=== PATIENT | male | born 1985 | race Caucasian/White ===

== ENCOUNTER 2017-03-26 20:27 | Emergency (ER) | payer OTHER ==
[~2017-03-26] VITALS: Ht 182.9 cm; Wt 117.9 kg
[~2017-03-26 20:27] MED LIST: ALBU90OI INH; CLON.5 PO; ERGO50000 PO; GUAI120S1 PO; IBUP800 PO; KETO10 PO; MEDICAL MARIJUANA; NYATA15 GM TP; OMEP40CA12 PO; PROM25 PO; Pseudoephedrine30 MG PO; Zofran Odt4 MG SL; [UNRECOGNIZED DRUG - OTHER]
[2017-03-26 21:14] LABS: BASOPHILS ABSOLUTE AUTO 0.05 K/mm3 (0.00-0.23); BASOPHILS PERCENT AUTO 1 % (0-2); EOSINOPHILS ABSOLUTE AUTO 0.36 K/mm3 (0.00-0.68); EOSINOPHILS PERCENT AUTO 3 % (0-6); Hemoglobin 15.3 g/dL (13.5-17.5); IMMATURE GRAN ABSOLUTE AUTO 0.04 K/mm3 (0.00-0.10); IMMATURE GRAN PERCENT AUTO 0 % (0-1); LYMPHOCYTES ABSOLUTE AUTO 4.94 K/mm3 (0.84-5.20); LYMPHOCYTES PERCENT AUTO 45 % (21-46); MONOCYTES ABSOLUTE AUTO 0.91 K/mm3 (0.16-1.47); MONOCYTES PERCENT AUTO 8 % (4-13); Mean Corpuscular HGB 30.7 pg (26.0-34.0); Mean Corpuscular HGB Conc 34.8 g/dL (31.5-36.5); Mean Corpuscular Volume 88 fL (80-100); Mean Platelet Volume 9.7 fL (9.1-12.4); NEUTROPHILS ABSOLUTE AUTO 4.76 K/mm3 (1.96-9.15); NEUTROPHILS PERCENT AUTO 43 % (41-73); Platelet Count 270 K/mm3 (150-400); RDW Coefficient Variation 12.9 % (11.7-14.2); RDW Standard Deviation 41.5 fL (35.1-46.3); Red Blood Cell Count 4.99 M/mm3 (4.30-5.90); White Blood Cell Count 11.06 K/mm3 (4.00-11.30)
[2017-03-26 21:30] LABS: Alanine Aminotransfer (ALT/SGP 38 U/L (12-78); Albumin, Blood 4.2 g/dL (3.4-5.0); Albumin/Globulin Ratio 1.3 (0.8-1.8); Alk Phos 83 U/L (50-136); Anion Gap 10 mmol/L (6-16); Aspartate Aminotrans (AST/SGOT 19 U/L (12-37); Bilirubin, Total 0.3 mg/dL (0.1-1.0); Blood Urea Nitrogen 16 mg/dL (8-24); Bun/Creatinine Ratio 15.1 (12.0-20.0); CO2, Blood 21 mmol/L (21-32); Calcium, Blood 8.9 mg/dL (8.5-10.1); Chloride, Blood 109 mmol/L (98-108); Creatinine, Blood 1.06 mg/dL (0.60-1.20); Globulin, Blood 3.2 g/dL (2.2-4.0); Glomerular Filtration Rate >60 (60-); Glucose, Blood 86 mg/dL (70-99); Potassium, Blood 3.8 mmol/L (3.5-5.5); Sodium, Blood 140 mmol/L (136-145); Total Protein, Blood 7.4 g/dL (6.4-8.2)
[2017-03-26 21:39] LABS: Source, Urine Clean Catch
[2017-03-26 21:43] LABS: Bilirubin, Urine Neg (Neg); Blood, Urine Neg (Neg); Glucose Qualitative, Urine Neg (Neg); Ketones, Urine Neg (Neg); Leukocyte Esterase, Urine Neg (Neg); Nitrite, Urine Neg (Neg); Protein, Urine Neg (Neg); Specific Gravity, Urine 1.025 (1.003-1.022); Urobilinogen, Urine NORM (Normal)
[2017-03-26 21:54] LABS: Appearance, Urine Clear (Clear); Color, Urine Yellow (P-Yellow)
[2017-03-26] MEDS ORDERED: Zofran Odt4 MG SL (22:18)
[2017-03-27] MEDS ORDERED: OMEPRAZOLE MAGN20 MG PO (22:58)
[2017-11-16] MEDS ORDERED: PANT40 PO (14:05)
[2017-11-16] MEDS ORDERED: Bentyl20 MG (14:05)
== END 2017-03-26 22:29 | disposition home or self-care (01) ==
LOC: ER 20:27
PROVIDERS: Emergency Medicine
DX: R10.11 Right upper quadrant pain (principal); K21.9 Gastro-esophageal reflux disease without esophagitis; F17.210 Nicotine dependence, cigarettes, uncomplicated; Z88.0 Allergy status to penicillin; Z88.8 Allergy status to other drugs, medicaments and biological substances; Z88.1 Allergy status to other antibiotic agents; Z90.49 Acquired absence of other specified parts of digestive tract
CPT/HCPCS: 36415; 80053; 81003; 83690; 85025; 96374; 96375; 99283; J1885; J2405

== ENCOUNTER 2017-05-22 17:20 | Emergency (ER) | payer OTHER ==
[~2017-05-22] VITALS: Ht 180.3 cm; Wt 117.9 kg
[~2017-05-22 17:20] MED LIST changes: +OMEPRAZOLE MAGN20 MG PO
[2017-05-22] MEDS ORDERED: Protonix40 MG PO (17:52)
[2017-05-22] MEDS ORDERED: HIGH POTENCY TOP (18:00)
[2017-11-16] MEDS ORDERED: PANT40 PO (14:05)
[2017-11-16] MEDS ORDERED: Bentyl20 MG (14:05)
== END 2017-05-22 18:51 | disposition home or self-care (01) ==
LOC: ER 17:20
DX: R10.11 Right upper quadrant pain (principal); G89.29 Other chronic pain; K21.9 Gastro-esophageal reflux disease without esophagitis; F17.210 Nicotine dependence, cigarettes, uncomplicated; Z90.49 Acquired absence of other specified parts of digestive tract; Z88.0 Allergy status to penicillin; Z88.1 Allergy status to other antibiotic agents; Z88.8 Allergy status to other drugs, medicaments and biological substances; Z79.899 Other long term (current) drug therapy
CPT/HCPCS: 96372; 99283; J1885

== ENCOUNTER → 2018-09-14 | Outpatient (CLI) | payer OTHER ==
[~2018-09-14] MED LIST changes: +Bentyl20 MG; +HIGH POTENCY TOP; +PANT40 PO; +Protonix40 MG PO
[2018-09-16 01:08] LABS: CHLAMYDIA TRACHOMATIS, NAA Negative (Negative); NEISSERIA GONORRHOEAE, NAA Negative (Negative)
== END | disposition home or self-care (01) ==
LOC: LAB SHORT 10:12 → LAB EV 10:12
PROVIDERS: General Practice
DX: Z20.2 Contact with and (suspected) exposure to infections with a predominantly sexual mode of transmission (principal)
CPT/HCPCS: 87491; 87591

== ENCOUNTER → 2018-09-20 | Outpatient (CLI) | payer OTHER ==
[2018-09-21 03:08] LABS: HIV SCREEN 4TH GENERATION WRFX Non Reactive (Non Reactive)
[2018-09-21 04:08] LABS: HBSAG SCREEN Negative (Negative); HEP A AB, IGM Negative (Negative); HEP B CORE AB, IGM Negative (Negative); HEP C VIRUS AB <0.1 (0.0-0.9)
== END | disposition home or self-care (01) ==
LOC: LAB EV 08:56 → LAB SHORT 08:56
PROVIDERS: Physician Assistant Medical
DX: Z72.51 High risk heterosexual behavior (principal)
CPT/HCPCS: 80074; 86592; 87389

== ENCOUNTER → 2019-01-22 | Outpatient (CLI) | payer SELFPAY | END | disposition home or self-care (01) | LOC: LAB SHORT 18:50 → LAB 18:50 | DX: L03.311 Cellulitis of abdominal wall (principal) | CPT/HCPCS: 87070; 87147; 87205 ==

== ENCOUNTER → 2022-03-07 | Outpatient (CLI) | payer OTHER | END | disposition home or self-care (01) | LOC: LAB SHORT 11:15 → LAB 11:15 | DX: R30.0 Dysuria (principal) | CPT/HCPCS: 87086 ==

== ENCOUNTER 2023-01-12 11:34 | Day surgery (SDC) | payer OTHER ==
[2023-01-12] VITALS (17 sets, daily range): BP systolic 113–173; BP diastolic 79–124
[~2023-01-12] VITALS: Ht 180.3 cm; Wt 134.7 kg
[~2023-01-12 11:34] MED LIST changes: +MINIPRESS2 MG PO; +Norco 5-325 Ta1 EACH PO; +TRAZ100 PO
--- NOTE | 2023-01-12 12:30 | NUR ---
History, Chart, Medications and Allergies reviewed before start of procedure. Lungs clear T/O to Auscultation. Patient confirms NPO status and agrees with scheduled surgery. Patient reports completing Chlorhexadine shower X1 PRIOR TO ADMISSION TO HOSPITAL.
--- NOTE | 2023-01-12 16:24 | NUR ---
Dressing to procedure site clean, dry, intact with no visible drainage, swelling, erythema or bruising noted. Patient States Post-Procedure ride home has been arranged. Patient up to Ambulate independently. Gait steady.
--- NOTE | 2023-01-12 16:40 | NUR ---
DISCHARGE: Patient up to Ambulate independently. Gait steady. Discharge instructions reviewed with patient. Patient verbalizes understanding. Copy given to patient to take home WELL . Patient States Post-Procedure ride home has been arranged WITH PT'S MOM/MIL. Discharged via wheelchair to private car for ride home.
== END 2023-01-12 16:40 | disposition home or self-care (01) ==
LOC: ORSCMMR 11:34 → ORD 13:00 → ORSCMMR 13:00
PROVIDERS: Orthopaedic Surgery
PROC: 0LM40ZZ Reattachment of Left Upper Arm Tendon, Open Approach (ICD-10-PCS; principal; 2023-01-12 12:30)
DX: S46.112A Strain of muscle, fascia and tendon of long head of biceps, left arm, initial encounter (principal); I10 Essential (primary) hypertension; Z79.899 Other long term (current) drug therapy; F17.210 Nicotine dependence, cigarettes, uncomplicated; J44.9 Chronic obstructive pulmonary disease, unspecified; E66.01 Morbid (severe) obesity due to excess calories; Z68.41 Body mass index [BMI] 40.0-44.9, adult; F41.8 Other specified anxiety disorders
CPT/HCPCS: A9270; C1713; J0690; J1100; J1885; J2250; J2270; J2405; J2704; J3010; J7120

== ENCOUNTER 2024-05-18 06:13 | Day surgery (SDC) | payer BC, OTHER ==
[~2024-05-18] VITALS: Ht 180.3 cm; Wt 146.4 kg
[2024-05-18] MEDS ORDERED: Lactated Ringer's 1,000 ML IV ONE ×2 (07:34→07:56)
[2024-05-18] MEDS ORDERED: propofoL 50 ML IV ONE ×2 (07:52→08:13)
[2024-05-18] MEDS ORDERED: Midazolam HCL 1 MG/ML 5MLVIAL ONE (07:53)
[2024-05-18 08:53] VITALS: BP 116/83
== END 2024-05-18 08:55 | disposition home or self-care (01) ==
LOC: ORSCSDS 06:13
PROVIDERS: Surgery
PROC: 0DJD8ZZ Inspection of Lower Intestinal Tract, Via Natural or Artificial Opening Endoscopic (ICD-10-PCS; principal; 2024-05-18 08:00)
DX: K62.5 Hemorrhage of anus and rectum (principal); K21.9 Gastro-esophageal reflux disease without esophagitis; I10 Essential (primary) hypertension; F17.210 Nicotine dependence, cigarettes, uncomplicated; E66.9 Obesity, unspecified; E66.01 Morbid (severe) obesity due to excess calories; Z68.42 Body mass index [BMI] 45.0-49.9, adult
CPT/HCPCS: J2250; J2704; J7120